=== PATIENT | female | born 1960 | race Caucasian/White ===

== ENCOUNTER 2018-02-19 16:20 | Emergency (ER) | payer OTHER ==
[2018-02-19 18:02] VITALS: BP 130/65
--- NOTE | 2018-02-19 18:12 | UC ---
Knee Pain HPI - HPI Summary HPI Summary: The patient is a 57-year-old female with chronic right knee pain. She has had 3 surgeries on her right knee in the past. She plans to have knee replacement done later this year. 4 nights ago she fell asleep with an ice pack wrapped around her knee. When she woke up her right knee was red and blistered. The posterior leg popped and has developed purulent discharge. The amount of redness has been decreasing daily. She denies any history of MRSA. - History of Current Complaint Chief Complaint: UCLowerExtremity Stated Complaint: RIGHT KNEE PAIN Time Seen by Provider: 02/19/18 18:04 Hx Obtained From: Patient Hx Last Menstrual Period: 10yrs Onset/Duration: Sudden Onset, Lasting Days Severity Initially: Mild Severity Currently: Mild Pain Intensity: 2 Pain Scale Used: 0-10 Numeric Character: Dull Aggravating Factor(s): Weight Bearing Alleviating Factor(s): Rest Associated Signs And Symptoms: Positive: Redness Able to Bear Weight: Yes Legs: 1 - open/raw/crusty d/c 2 - surrounding erthyema - Allergies/Home Medications Allergies/Adverse Reactions: Allergies Allergy/AdvReac Type Severity Reaction Status Date / Time prednisone Allergy Itching Verified 02/19/18 17:59 environmental Allergy Congestion Uncoded 02/19/18 17:59 Home Medications: Home Medications Acetaminophen [Tylenol Extra Strength] 1,000 mg PO ONCE 02/19/18 [History Confirmed 02/19/18] PMH/Surg Hx/FS Hx/Imm Hx Previously Healthy: Yes Cardiovascular History: Hypertension - Surgical History Surgical History: Yes Surgery Procedure, Year, and Place: Soft Palate Removed, 2009, [facility]. Left Hip Replacement, 2011, [facility]. Knee Arthroscopies. Bone graft from right hip to right knee, 1996 - Family History Known Family History: Positive: Unknown - Social History Alcohol Use: Occasionally Substance Use Type: None Smoking Status (MU): Never Smoked Tobacco - Immunization History Most Recent Influenza Vaccination: [id number] Review of Systems Constitutional: Negative Skin: Negative Eyes: Negative ENT: Negative Respiratory: Negative Cardiovascular: Negative Gastrointestinal: Negative Genitourinary: Negative Motor: Negative Neurovascular: Negative Musculoskeletal: Arthralgia - chronic Neurological: Negative Psychological: Negative Is Patient Immunocompromised?: No All Other Systems Reviewed And Are Negative: Yes Physical Exam Triage Information Reviewed: Yes Appearance: Well-Appearing, No Pain Distress, Well-Nourished Vital Signs: Initial Vital Signs Temp 97.3 F 02/19/18 17:56 Pulse 89 02/19/18 17:56 Resp 17 02/19/18 17:56 BP 130/65 02/19/18 17:56 Pulse Ox 100 02/19/18 17:56 Vital Signs Reviewed: Yes Eyes: Positive: Conjunctiva Clear ENT: Positive: Hearing grossly normal. Negative: Nasal congestion, Nasal drainage, Trismus, Muffled voice Neck: Positive: Supple, Nontender Respiratory: Positive: Lungs clear, Normal breath sounds, No respiratory distress Cardiovascular: Positive: RRR Musculoskeletal: Positive: Other: - see image Neurological: Positive: Alert Psychological Exam: Normal Skin Exam: Other - see image Knee Pain Course/Dx - Differential Dx/Diagnosis Provider Diagnoses: frostbite right knee. possible secondary bacterial imfection Discharge - Sign-Out/Discharge Documenting (check all that apply): Patient Departure - Discharge Plan Condition: Stable Disposition: HOME Prescriptions: Cephalexin CAP* [Keflex CAP*] 500 mg PO QID #28 cap Mupirocin 2% OINT* [Bactroban 2 % Oint*] 1 applic TOPICAL TID #1 tube Patient Education Materials: Frostbite (ED) Referrals: Manolo Escobar MD [Primary Care Provider] - If Needed Additional Instructions: recheck in 4 days if not continuing to improve - Billing Disposition and Condition Condition: STABLE Disposition: Home
== END 2018-02-19 18:37 | disposition home or self-care (01) ==
LOC: UCCORT 16:20
DX: T33.71XA Superficial frostbite of right knee and lower leg, initial encounter (principal); X31.XXXA Exposure to excessive natural cold, initial encounter; Y93.89 Activity, other specified; Y92.009 Unspecified place in unspecified non-institutional (private) residence as the place of occurrence of the external cause; I10 Essential (primary) hypertension; Z88.8 Allergy status to other drugs, medicaments and biological substances
CPT/HCPCS: 87070; 87205; 99212; G0463

== ENCOUNTER 2018-06-16 13:30 | Emergency (ER) | payer OTHER ==
[2018-06-16 13:51] VITALS: BP 128/74
--- NOTE | 2018-06-16 14:03 | UC ---
Throat Pain/Nasal Lamonte HPI - HPI Summary HPI Summary: Pt presents with c/o nasal congestion, sinus pressure, pain, cough, chest congestion, fatigue X 10 days. Pt has been taking OTC cough, cold medication with some relief in symptoms. Pt reports symptoms are not improving - History of Current Complaint Chief Complaint: UCRespiratory Stated Complaint: COUGH SORE THROAT SINUS CONGESTION Time Seen by Provider: 06/16/18 13:56 Hx Obtained From: Patient Hx Last Menstrual Period: 10yrs ?: No Onset/Duration: Gradual Onset, Lasting Days, Still Present Severity: Moderate Pain Intensity: 7 Cough: Nonproductive Associated Signs & Symptoms: Positive: Sinus Discomfort, Nasal Discharge - Epiglottits Risk Factors Epiglottis Risk Factors: Negative - Allergies/Home Medications Allergies/Adverse Reactions: Allergies Allergy/AdvReac Type Severity Reaction Status Date / Time prednisone Allergy Itching Verified 06/16/18 13:47 environmental Allergy Congestion Uncoded 06/16/18 13:47 Home Medications: Home Medications Acetaminophen [Acetaminophen Extra Strength] 1,000 mg PO ONCE 06/16/18 [History Confirmed 06/16/18] DULoxetine DR CAP* [Cymbalta CAP*] 60 mg PO DAILY 06/16/18 [History Confirmed ] PMH/Surg Hx/FS Hx/Imm Hx Previously Healthy: Yes - Surgical History Surgical History: Yes Surgery Procedure, Year, and Place: Soft Palate Removed, 2009, [facility]. Left Hip Replacement, 2011, [facility]. Knee Arthroscopies. Bone graft from right hip to right knee, 1996 - Family History Known Family History: Positive: Cardiac Disease - Social History Occupation: Employed Full-time Lives: With Family Alcohol Use: Occasionally Substance Use Type: None Smoking Status (MU): Never Smoked Tobacco Have You Smoked in the Last Year: No - Immunization History Most Recent Influenza Vaccination: [id number] Review of Systems All Other Systems Reviewed And Are Negative: Yes Constitutional: Positive: Fatigue Skin: Positive: Negative Eyes: Positive: Negative ENT: Positive: Sore Throat, Sinus Congestion, Sinus Pain/Tenderness Respiratory: Positive: Cough Cardiovascular: Positive: Negative Gastrointestinal: Positive: Negative Genitourinary: Positive: Negative Motor: Positive: Negative Neurovascular: Positive: Negative Musculoskeletal: Positive: Negative Neurological: Positive: Headache Psychological: Positive: Negative Is Patient Immunocompromised?: No Physical Exam Triage Information Reviewed: Yes Appearance: Ill-Appearing Vital Signs: Initial Vital Signs Temp 98.9 F 06/16/18 13:45 Pulse 85 06/16/18 13:45 Resp 15 06/16/18 13:45 BP 128/74 06/16/18 13:45 Pulse Ox 99 06/16/18 13:45 Vital Signs Reviewed: Yes Eye Exam: Normal ENT: Positive: Nasal congestion, Sinus tenderness, Other - pt does not have uvula, had surgically removed by dr royal for sleep apnea Dental Exam: Normal Neck exam: Normal Respiratory Exam: Normal Cardiovascular Exam: Normal Musculoskeletal Exam: Normal Neurological Exam: Normal Psychological Exam: Normal Skin Exam: Normal Throat Pain/Nasal Course/Dx - Differential Dx/Diagnosis Differential Diagnosis/HQI/PQRI: Otitis Media, Sinusitis, URI Provider Diagnosis: Sinusitis, acute Discharge - Sign-Out/Discharge Documenting (check all that apply): Patient Departure All imaging exams completed and their final reports reviewed: No Studies - Discharge Plan Condition: Stable Disposition: HOME Prescriptions: Amoxicillin PO (*) [Amoxicillin 875 MG (*)] 875 mg PO Q12H #20 tab Patient Education Materials: Decongestant/Expectorant (By mouth), Sinusitis (ED ) Referrals: Manolo Escobar MD [Primary Care Provider] - If Needed - Billing Disposition and Condition Condition: STABLE Disposition: Home
== END 2018-06-16 14:10 | disposition home or self-care (01) ==
LOC: UCCORT 13:30
DX: J01.90 Acute sinusitis, unspecified (principal); Z88.8 Allergy status to other drugs, medicaments and biological substances
CPT/HCPCS: 99212; G0463

== ENCOUNTER 2018-09-29 15:26 | Emergency (ER) | payer OTHER ==
[2018-09-29 15:48] VITALS: BP 123/51
--- NOTE | 2018-09-29 16:10 | UC ---
Respiratory Complaint HPI - HPI Summary HPI Summary: 58-year-old female presents with onset of nasal congestion, sinus pressure, hoarse voice, and sore throat one week ago. Approximately 4-5 days ago started developing a occasionally productive cough for yellow sputum that is progressively worsened. She does note some chest "burning" with cough. Denies fever, chills, ear pain, dysphagia, shortness of breath, abdominal pain, nausea , vomiting, or diarrhea. - History of Current Complaint Chief Complaint: UCGeneralIllness Stated Complaint: COUGH, SORE THROAT, HEADACHE Time Seen by Provider: 09/29/18 15:40 Hx Obtained From: Patient Hx Last Menstrual Period: 10yrs Pain Intensity: 7 - Allergies/Home Medications Allergies/Adverse Reactions: Allergies Allergy/AdvReac Type Severity Reaction Status Date / Time prednisone Allergy Itching Verified 09/29/18 15:48 environmental Allergy Congestion Uncoded 09/29/18 15:48 Home Medications: Home Medications Ascorbic Acid TAB* [Vitamin C TAB*] 1,000 mg PO DAILY 09/29/18 [History Confirmed 09/29/18] Dm/PE/Acetaminophen/Chlorphenr [Makenna-Buda Plus Cld-Cough Cp] 1 each PO DAILY 09/29/18 [History Confirmed 09/29/18] PMH/Surg Hx/FS Hx/Imm Hx Previously Healthy: Yes Psychological History: Depression - Surgical History Surgical History: Yes Surgery Procedure, Year, and Place: Soft Palate Removed, 2009, [facility]. Left Hip Replacement, 2011, [facility]. Knee Arthroscopies. Bone graft from right hip to right knee, 1996 - Family History Known Family History: Positive: Unknown, Cardiac Disease - Social History Occupation: Employed Full-time Lives: With Family Alcohol Use: Occasionally Substance Use Type: None Smoking Status (MU): Never Smoked Tobacco Have You Smoked in the Last Year: No - Immunization History Most Recent Influenza Vaccination: [id number] Review of Systems All Other Systems Reviewed And Are Negative: Yes Constitutional: Negative: Fever, Chills Skin: Negative: Rash Eyes: Negative: Drainage, Eye Redness ENT: Positive: Sore Throat, Nasal Discharge, Sinus Congestion. Negative: Ear Ache, Sinus Pain/Tenderness Respiratory: Positive: Cough. Negative: Shortness Of Breath Cardiovascular: Negative: Palpitations, Chest Pain Gastrointestinal: Negative: Abdominal Pain, Vomiting, Diarrhea, Nausea Genitourinary: Positive: Negative Musculoskeletal: Positive: Negative Neurological: Positive: Negative Is Patient Immunocompromised?: No Physical Exam - Summary Physical Exam Summary: GENERAL APPEARANCE: Well developed, well nourished, alert and cooperative, and appears to be in no acute distress. EYES: Conjunctiva clear. No drainage. Vision is grossly intact. EARS: External auditory canals and tympanic membranes clear, hearing grossly intact. NOSE: Mild-moderate nasal congestion. No nasal discharge. THROAT: Hoarse voice. Pharyngeal erythema with cobblestoning. No tonsilar inflammation, swelling, exudate, or lesions. Uvula midline. Oral cavity normal. Teeth and gingiva in good general condition. NECK: Neck supple, non-tender without lymphadenopathy. CARDIAC: Normal S1 and S2. No S3, S4 or murmurs. Rhythm is regular. There is no peripheral edema, cyanosis or pallor. Extremities are warm and well perfused. Capillary refill is less than 2 seconds. Peripheral pulses intact. LUNGS: Clear to auscultation without rales, rhonchi, wheezing or diminished breath sounds. Non-productive cough. ABDOMEN: Positive bowel sounds. Soft, nondistended, nontender. No guarding or rebound. No masses or hepatosplenomegally. MUSKULOSKELETAL: ROM intact to all extremities. No joint erythema or tenderness. Normal muscular development. Normal gait. SKIN: Skin normal color, texture and turgor with no lesions or eruptions. Triage Information Reviewed: Yes Vital Signs: Initial Vital Signs Temp 99.6 F 09/29/18 15:43 Pulse 110 09/29/18 15:43 Resp 18 09/29/18 15:43 BP 123/51 09/29/18 15:43 Pulse Ox 98 09/29/18 15:43 Vital Signs Reviewed: Yes Respiratory Course/Dx - Course Course Of Treatment: 58-year-old female presents with onset of nasal congestion, sinus pressure, hoarse voice, and sore throat one week ago. Approximately 4-5 days ago started developing a occasionally productive cough for yellow sputum that is progressively worsened. She does note some chest "burning" with cough. Denies fever, chills, ear pain, dysphagia, shortness of breath, abdominal pain, nausea , vomiting, or diarrhea. Afebrile. Mildly tachycardic was vital signs stable. Exam Remarkable for nasal congestion, mild pharyngeal erythema with cobblestoning, hoarse voice, and nonproductive cough. Considering the progressively worsening of her symptoms I will start her on a course of azithromycin for a URI and recommend symptomatic treatment including nasal rinses, fluticasone nasal spray, and Tessalon Perles 1 capsule every 8 hours as needed for cough. She is to follow-up with her primary care provider in 5 days if symptoms do not improve. Anticipatory guidance and warning symptoms reviewed with patient. Verbalizes understanding and agrees with plan of care. - Differential Dx/Diagnosis Differential Diagnosis/HQI/PQRI: Bronchitis, Lower Resp Infection, Sinusitis, Other - URI Provider Diagnosis: URI with cough and congestion Discharge - Sign-Out/Discharge Documenting (check all that apply): Patient Departure All imaging exams completed and their final reports reviewed: No Studies - Discharge Plan Condition: Stable Disposition: HOME Prescriptions: Azithromyxin DANNY (NF) [Z-Danny (Zithromax) 250 mg tabs #6] 2 tab PO .TODAY, THEN 1 DAILY #6 tab Benzonatate CAP* [Tessalon 100 MG CAP*] 100 mg PO TID PRN #30 cap PRN Reason: Cough Fluticasone NASAL SPRAY 50MCG* [Flonase NASAL SPRAY 50MCG*] 2 spray BOTH NARES DAILY #1 btl Patient Education Materials: Upper Respiratory Infection (ED) Referrals: Manolo Escobar MD [Primary Care Provider] - 5 Days (If no improvement.) Additional Instructions: Your history and exam are consistent with an upper respiratory infection. We will start you on an antibiotic to treat the infection. Start azithromycin 2 tabs today then 1 tab a day for the next 4 days. Plenty of rest Drink plenty of fluids. Use a saline rinse kit such as Neti Pot or NeilMed at least twice a day to help thin secretions and promote drainage of the sinuses. Use fluticasone (Flonase) nasal spray 2 sprays each nostril once daily. Take over the counter acetaminophen (Tylenol) or ibuprofen (Advil, Motrin) according to directions as needed for pain or fever. Use salt water gargles several times a day if you have a sore throat. You may also use Chloraseptic spray or Cepacol lonzenges according to directions which contain a numbing medication and can provide some temporary relief from your sore throat. Use Tessalon Perles 1 cap every 8 hours as needed for cough. Follow up with your primary care provider in 5 days if symptoms persist. Seek immediate medical attention in the emergency room if you have fever greater than 100.5 F despite taking acetaminophen or ibuprofen, have chest pain , difficulty breathing, are unable to swallow, or have any worsening of symptoms. - Billing Disposition and Condition Condition: STABLE Disposition: Home - Attestation Statements Provider Attestation: Per institutional requirements, I have reviewed the chart, however, I was not consulted specifically or made aware of this patient by the midlevel provider. I did not personally evaluate, interact with , or disposition this patient.
== END 2018-09-29 16:17 | disposition home or self-care (01) ==
LOC: UCCORT 15:26
DX: J06.9 Acute upper respiratory infection, unspecified (principal); R05 Cough; R09.81 Nasal congestion; Z88.8 Allergy status to other drugs, medicaments and biological substances; Z91.09 Other allergy status, other than to drugs and biological substances
CPT/HCPCS: 99212; G0463

== ENCOUNTER 2019-05-07 10:46 | Emergency (ER) | payer OTHER ==
[2019-05-07 12:12] VITALS: BP 134/78
--- NOTE | 2019-05-07 12:30 | UC ---
Throat Pain/Nasal Lamonte HPI - HPI Summary HPI Summary: 58-year-old woman comes in with a chief complaint of upper respiratory tract infection symptoms for one week. She has rhinorrhea, sore throat, and cough with chest congestion. She has seen yellow sputum. No wheezing no history of asthma she is not a smoker. She has been taking some [id number] medications which do help some. - History of Current Complaint Chief Complaint: UCRespiratory Stated Complaint: COUGH/ST Time Seen by Provider: 05/07/19 12:21 Hx Last Menstrual Period: 10yrs Pain Intensity: 5 - Allergies/Home Medications Allergies/Adverse Reactions: Allergies Allergy/AdvReac Type Severity Reaction Status Date / Time prednisone Allergy Itching Verified 05/07/19 12:07 environmental Allergy Congestion Uncoded 05/07/19 12:07 PMH/Surg Hx/FS Hx/Imm Hx Previously Healthy: Yes - Surgical History Surgical History: Yes Surgery Procedure, Year, and Place: Soft Palate Removed, 2009, [facility]. Left Hip Replacement, 2011, [facility]. Knee Arthroscopies. Bone graft from right hip to right knee, 1996 - Family History Known Family History: Positive: Unknown, Cardiac Disease - Social History Alcohol Use: Weekly Substance Use Type: None Smoking Status (MU): Never Smoked Tobacco Have You Smoked in the Last Year: No - Immunization History Most Recent Influenza Vaccination: [id number] Review of Systems All Other Systems Reviewed And Are Negative: Yes Constitutional: Positive: Other - SEE HPI Skin: Positive: Negative Eyes: Positive: Negative ENT: Positive: Sore Throat, Nasal Discharge, Sinus Congestion Respiratory: Positive: Cough, Other - SEE HPI Cardiovascular: Positive: Negative Gastrointestinal: Positive: Negative Motor: Positive: Negative Neurovascular: Positive: Negative Musculoskeletal: Positive: Negative Neurological: Positive: Negative Psychological: Positive: Negative Is Patient Immunocompromised?: No Physical Exam Triage Information Reviewed: Yes Appearance: No Pain Distress, Well-Nourished, Ill-Appearing - MILD Vital Signs: Initial Vital Signs Temp 97.7 F 05/07/19 12:08 Pulse 88 05/07/19 12:08 Resp 16 05/07/19 12:08 BP 134/78 05/07/19 12:08 Pulse Ox 100 05/07/19 12:08 Vital Signs Reviewed: Yes Eye Exam: Normal Eyes: Positive: Conjunctiva Clear ENT: Positive: Pharyngeal erythema, Nasal congestion, Nasal drainage, TMs normal Neck: Positive: Supple Respiratory: Positive: Lungs clear, Normal breath sounds, No respiratory distress Cardiovascular: Positive: RRR Musculoskeletal: Positive: Strength Intact, ROM Intact Neurological: Positive: Alert, Muscle Tone Normal Psychological: Positive: Age Appropriate Behavior Skin Exam: Normal Throat Pain/Nasal Course/Dx - Course Course Of Treatment: DISCUSSED VIRAL VERSES BACTERIAL INFECTIONS AND THE ROLE OF ANTIBIOTICS. THE PATIENT PREFERS TO BE ON ANTIBIOTICS AT THIS TIME. - Differential Dx/Diagnosis Provider Diagnosis: Upper respiratory infection Discharge ED - Sign-Out/Discharge Documenting (check all that apply): Patient Departure All imaging exams completed and their final reports reviewed: No Studies - Discharge Plan Condition: Stable Disposition: HOME Prescriptions: Amoxicillin PO (*) [Amoxicillin 875 MG (*)] 875 mg PO BID #20 tab Patient Education Materials: Upper Respiratory Infection (ED) Referrals: Manolo Escobar MD [Primary Care Provider] - Additional Instructions: FOLLOW UP WITH YOUR DOCTOR IF NOT COMPLETELY IMPROVED. GET REEVALUATED SOONER IF NOT IMPROVING OR YOUR CONDITION WORSENS OR ANY QUESTIONS OR CONCERNS. - Billing Disposition and Condition Condition: STABLE Disposition: Home
== END 2019-05-07 12:35 | disposition home or self-care (01) ==
LOC: UCCORT 10:46
DX: J06.9 Acute upper respiratory infection, unspecified (principal); Z91.09 Other allergy status, other than to drugs and biological substances; Z88.8 Allergy status to other drugs, medicaments and biological substances
CPT/HCPCS: 99212; G0463